=== PATIENT | female | born 2000 | race Hispanic/Latino ===

== ENCOUNTER 2018-11-11 17:08 | Inpatient (IN) | payer OTHER ==
[~2018-11-11 17:08] MED LIST: Bupivacaine/Epinephrine 0.25% 30 ML VIAL ONE
[2018-11-11 17:52] VITALS: BMI 35.2
[2018-11-11] MEDS ORDERED: hydrALAZINE 20 MG/ML VIAL SLOW IVP PRN ×2 (18:23→19:12)
[2018-11-11] MEDS ORDERED: Acetaminophen 500 MG TAB PO PRN (19:12)
[2018-11-11] MEDS ORDERED: Methylergonovine 0.2 MG/ML VIAL IM PRN (19:12)
[2018-11-11] MEDS ORDERED: Butorphanol Tartrate 1 MG/ML VIAL SLOW IVP PRN (19:12)
[2018-11-11] MEDS ORDERED: Misoprostol 200 MCG TAB PR PRN (19:12)
[2018-11-11] MEDS ORDERED: NS / Oxytocin 40 units/1000ml 1,000 ML IV PRN (19:12)
[2018-11-11] MEDS ORDERED: Carboprost 250 MCG/ML AMP IM PRN (19:12)
[2018-11-11] MEDS ORDERED: Ibuprofen 800 MG TAB PO PRN (19:12)
[2018-11-11] MEDS ORDERED: Ondansetron PF 4 MG/2 ML Vial IVP PRN (19:12)
[2018-11-11] MEDS ORDERED: Zolpidem Tartrate 5 MG TAB PO PRN (19:12)
[2018-11-11] MEDS ORDERED: HYDROcodone/Acetaminophen 5/325 mg Tablet PO PRN ×2 (19:12)
[2018-11-11] MEDS ORDERED: Lidocaine 1% (PF) 30 ML VIAL SC PRN (19:12)
[2018-11-11] MEDS ORDERED: Promethazine HCl 25 MG/ML VIAL IM PRN (19:12)
--- NOTE | 2018-11-11 19:20 | PDOC.LDHP ---
Labor and Delivery H&P Chief complaint: contractions HPI: 18 yo LAF presents c/o UCs since 5am today. + bloody show. Denies SROM or heavy bleeding. Current gestational age (weeks): 37 Due date: 11/28/18 Dating criteria: last menstrual period Grav: 1 Para: 0 OB History Details: PNC with Dr. Barba w/o complications. Current complications: none Abnormal US findings: No Past Medical History: None Current medications: pre- vitamins Previous surgical history: none Allergies/Adverse Reactions: Allergies Allergy/AdvReac Type Severity Reaction Status Date / Time No Known Allergies Allergy Unverified 11/11/18 17:58 Social history: none - Physical Exam Vital signs reviewed and normal: yes General: breathing through contractions Heart: RRR Lungs: nonlabored breathing Extremeties: trace edema FHT: category 1 [place] contractions every: q 2-3 mis - Vaginal Exam cm dilated: 4 Effacement: 100% Station: -1 - OB Labs Blood type: O RH: positive Antibody Screen: negative HIV: negative HEPSAg: negative GBS: negative Rubella: immune - Assessment L&D Assessment: term patient in labor - Plan Plan: admit to L&D (Dr. Barba notified), labor augmentation if indicated, informed consent obtained
[2018-11-11] MEDS ORDERED: Lactated Ringer's 1,000 ML IV SCH (19:30)
[2018-11-11] MEDS ORDERED: NS w/ Oxytocin 10 units 500 ML IV SCH (19:30)
[2018-11-11 20:09] LABS: Mean Corpuscular HGB CONC 34.5 g/dL (32.0-36.0); Mean Corpuscular Hemoglobin 31.3 pg (25.0-35.0); Mean Corpuscular Volume 90.6 fL (78.0-98.0); Mean Platelet Volume 7.7 fL (7.4-10.4); Platelet Count 331 thou/uL (130-400); RBC Distribution Width 11.7 % (11.5-14.5); Red Blood Cell (RBC) Count 4.47 mill/uL (4.00-5.20)
[2018-11-11 20:47] LABS: Syphilis Antibody Nonreactive (Nonreactive); Syphilis Antibody Index 0.03 S/CO (<1.00 Non-Reactive)
[2018-11-11] MEDS: Lactated Ringer's 1,000 ML IV SCH (20:57)
[2018-11-11 23:19] LABS: HBSAg Index 0.17 S/CO (0-0.99); Hep B Surf Ag Non-Reactive S/CO (NonReactive)
[2018-11-12] MEDS: Lactated Ringer's 1,000 ML IV SCH ×2 (01:18→05:31)
[2018-11-12] MEDS ORDERED: Fentanyl 4 mcg/Bup 0.1% Cadd 100 ML ONE (02:42)
[2018-11-12] MEDS ORDERED: Lidocaine 1.5%/Epinephrine 1:200,000 5 ML AMPUL IJ ONE (02:54)
[2018-11-12] MEDS ORDERED: Fentanyl 100 MCG/2 ML VIAL ONE (02:54)
[2018-11-12] MEDS ORDERED: Ondansetron PF 4 MG/2 ML Vial IVP PRN (04:25)
[2018-11-12] MEDS ORDERED: ePHEDrine/0.9% NaCl/PF SYRINGE 50 mg/10 ml SLOW IVP PRN (04:25)
[2018-11-12] MEDS ORDERED: diphenhydrAMINE 50 MG/ML VIAL IVP PRN (04:25)
[2018-11-12] MEDS ORDERED: Lactated Ringer's 500 ML IV PRN (04:25)
[2018-11-12] MEDS ORDERED: Naloxone HCl 0.4 mg/ml Vial IVP PRN ×2 (04:25)
[2018-11-12] MEDS ORDERED: Promethazine HCl 25 MG/ML VIAL IM PRN (04:25)
[2018-11-12] MEDS ORDERED: Acetaminophen 325 MG TAB PO PRN (04:25)
[2018-11-12] MEDS ORDERED: Communication Order-Pharmacy FS SCH (04:30)
[2018-11-12] MEDS ORDERED: Fentanyl 4 mcg/Bupivacaine 0.1% Cassette 100 ML EPIDURAL SCH (04:30)
[2018-11-12] MEDS ORDERED: Lidocaine 1% (PF) 30 ML VIAL ONE (06:11)
--- NOTE | 2018-11-12 09:29 | PDOC.OPDEL ---
OB Operative/Delivery Note Delivery Dr/Surgeon: Freda Pre-Delivery Diagnosis: active labor Procedure/Post Delivery Dx: spontaneous vaginal delivery Weeks gestation: 37 Anesthesia: epidural - Findings A - 1 min: 8 - 5 min: 9 - Additional Findings/Plan Placenta delivered: spontaneous Repaired Obstetrical Laceration: 1st degree Estimated blood loss: qbl 150 ml
[2018-11-12] MEDS ORDERED: traMADol HCl 50 MG TAB PO PRN (09:30)
[2018-11-12] MEDS ORDERED: Milk Of Magnesia 30 ML UDCUP PO PRN (09:30)
[2018-11-12] MEDS ORDERED: hydrALAZINE 20 MG/ML VIAL SLOW IVP PRN (09:30)
[2018-11-12] MEDS ORDERED: Lanolin Ointment 7 GM TUBE TOP PRN (09:30)
[2018-11-12] MEDS ORDERED: Benzocaine-Menthol 82.5 ML CAN TOP PRN (09:30)
[2018-11-12] MEDS ORDERED: Bisacodyl 10 MG SUPP PR PRN (09:30)
[2018-11-12] MEDS: NS / Oxytocin 40 units/1000ml 1,000 ML IV SCH ×2 (09:49→15:52)
[2018-11-12] MEDS: Ibuprofen 800 MG TAB PO SCH ×2 (15:51→21:47)
[2018-11-12] MEDS: Ferrous Sulfate 325 MG TAB PO SCH (18:29)
[2018-11-12] MEDS: Docusate Calcium (SURFAK) 240 MG CAP PO SCH (21:47)
[2018-11-13] MEDS: Ibuprofen 800 MG TAB PO SCH ×3 (06:23→21:08)
[2018-11-13] MEDS: Ferrous Sulfate 325 MG TAB PO SCH ×2 (07:39→13:27)
--- NOTE | 2018-11-13 08:12 | PDOC.PP ---
Post Progress Note Post Day #: 1 PO intake tolerated: yes Flatus: yes Ambulation: yes Vital Signs (12 hours) Temp Pulse Resp BP Pulse Ox 11/13/18 04:15 98.1 F 90 18 123/71 11/13/18 00:58 98.0 F 91 18 126/66 11/12/18 20:20 97 Weight Weight 205 lb Result Diagrams: 11/11/18 19:31 Additional Labs: Post Labs Blood Type O POSITIVE 11/11/18 20:51 Hep Bs Antigen Non-Reactive S/CO (NonReactive) 11/11/18 19:31 - Assessment/Plan POst day0-1. PrimiPARA. dOING WELL. rOUTINE CARE. d/C FOR am.
[2018-11-13] MEDS ORDERED: Adacel (T-DAP) 0.5 ML SYRINGE IM ONE (09:30)
[2018-11-13] MEDS: Docusate Calcium (SURFAK) 240 MG CAP PO SCH ×2 (09:31→21:09)
[2018-11-13] MEDS: Prenatal Vitamin 1 TAB PO SCH (09:31)
[2018-11-14] MEDS: Ibuprofen 800 MG TAB PO SCH (06:21)
[2018-11-14] MEDS: Ferrous Sulfate 325 MG TAB PO SCH (08:36)
[2018-11-14 08:40] VITALS: BP 137/84; TEMP 98.1
--- NOTE | 2018-11-14 09:21 | PDOC.PP ---
Post Progress Note Post Day #: 2 PO intake tolerated: yes Flatus: yes Ambulation: yes Vital Signs (12 hours) Temp Pulse Resp BP Pulse Ox 11/14/18 08:40 98.1 F 70 16 137/84 100 11/14/18 08:00 100 11/14/18 00:30 98.4 F 64 18 124/64 Weight Weight 205 lb Result Diagrams: 11/11/18 19:31 Additional Labs: Post Labs Blood Type O POSITIVE 11/11/18 20:51 Hep Bs Antigen Non-Reactive S/CO (NonReactive) 11/11/18 19:31 - Assessment/Plan dOING WELL POST DAY 2. d/C HOME. f/U IN 6 WEEKS..
[2018-11-14] MEDS: Prenatal Vitamin 1 TAB PO SCH (09:41)
[2018-11-14] MEDS: Docusate Calcium (SURFAK) 240 MG CAP PO SCH (09:41)
== END 2018-11-14 12:30 | disposition home or self-care (01) | DRG 807 ==
LOC: L&D/OP 17:08 → L&D 21:47 → 3SW 11-12 12:31
PROVIDERS: ADMIT Obstetrics & Gynecology; ATTEND Obstetrics & Gynecology
PROC: 10E0XZZ Delivery of Products of Conception, External Approach (ICD-10-PCS; principal; 2018-11-12)
PROC: 0HQ9XZZ Repair Perineum Skin, External Approach (ICD-10-PCS; 2018-11-12)
DX: O70.0 First degree perineal laceration during delivery (principal); Z37.0 Single live birth; Z3A.37 37 weeks gestation of pregnancy
CPT/HCPCS: 36415; 85027; 86780; 86850; 86900; 86901; 87340; J0595; J2001; J3010; J3490

== ENCOUNTER 2019-01-05 10:31 | Emergency (ER) | payer OTHER ==
[2019-01-05] MEDS ORDERED: Ondansetron ODT 4 MG TAB ONE (10:39)
[2019-01-05] MEDS ORDERED: Morphine 4 MG/ML VIAL ONE (11:39)
[2019-01-05 12:08] LABS: #Basophils 0.1 thou/uL (0.0-0.2); #Lymphocytes 0.8 thou/uL (1.20-3.40); #Monocytes 0.3 thou/uL (0.11-0.59); #Neutrophils 14.6 thou/uL (1.40-6.50); %Basophils 0.3 % (0.0-1.0); %Eosinophils 0.1 % (0.0-10.0); %Lymphocytes 5.1 % (28.0-48.0); %Neutrophils 92.5 % (31.0-61.0); Hemoglobin 14.2 g/dL (12.0-16.0); Mean Corpuscular HGB CONC 34.6 g/dL (32.0-36.0); Mean Corpuscular Hemoglobin 30.7 pg (25.0-35.0); Mean Corpuscular Volume 88.9 fL (78.0-98.0); Mean Platelet Volume 6.8 fL (7.4-10.4); Platelet Count 400 thou/uL (130-400); RBC Distribution Width 11.4 % (11.5-14.5); Red Blood Cell (RBC) Count 4.61 mill/uL (4.00-5.20); White Blood Cell (WBC) Count 15.8 thou/uL (4.8-10.8)
--- NOTE | 2019-01-05 12:23 | ULT ---
ULTRASOUND GALLBLADDER RIGHT UPPER QUADRANT: CLINICAL HISTORY: Abdominal pain. COMPARISON: None. FINDINGS: Pancreas: The head of the pancreas has a normal echotexture. The remainder the pancreas is obscured b y bowel gas. Liver: Heterogeneous echotexture which may be due to hepatic steatosis or hepatocellular disease. Sub sequent limited evaluation for hepatic masses and intrahepatic biliary dilatation. The contour of the hepatic margin is maintained. Right hepatic lobe measures 18.1 cm. Gallbladder: Mild gallbladder distention. Small echogenic nonshadowing focus in the neck of the gallb ladder which may represent an adherent nonshadowing stone versus a gallbladder polyp. Gallbladder wall is not thickened. No pericholecystic fluid. Askew's sign:Negative. Portal Vein: Patent. Appropriate directional flow. Bile ducts: 0.5 cm. Right kidney: No hydronephrosis. Right kidney measures 5.3 x 4.7 x 9.8 cm in length. IMPRESSION: Small nonshadowing echogenic focus in the lumen of gallbladder which may represent a small gallstone or polyp. No evidence of cholecystitis. Transcribed Date/Time: 01/05/2019 12:31 PM
[2019-01-05 12:24] LABS: ALT (SGPT) 169 U/L (8-55); AST (SGOT) 282 U/L (5-34); Albumin 4.5 g/dL (3.5-5.0); Alkaline Phosphatase 176 U/L (40-100); Anion Gap 15 mmol/L (10-20); BUN (Urea Nitrogen) 5 mg/dL (7.0-18.7); Bilirubin, Total 1.8 mg/dL (0.2-1.2); Calc. Creatinine Clearance 0 mL/min (70-130); Calcium 9.6 mg/dL (7.8-10.44); Carbon Dioxide 23 mmol/L (22-29); Chloride 103 mmol/L (98-107); Estimated GFR-MDRD Greater than 90; Glucose 103 mg/dL (70-105); Lipase 7 U/L (8-78); Potassium 5.5 mmol/L (3.5-5.1); Protein, Total 7.5 g/dL (6.0-8.3); Sodium 135 mmol/L (136-145)
--- NOTE | 2019-01-05 12:25 | RAD ---
SINGLE VIEW CHEST: Date: 01/05/19 COMPARISON: None. HISTORY: Chest pain with vomiting. FINDINGS: Single view of the chest shows a normal sized cardiomediastinal silhouette. There is no evidence of c onsolidation, mass, or pleural effusion. The bones are unremarkable. IMPRESSION: No evidence of acute cardiopulmonary disease. POS: TPC
[2019-01-05] MEDS ORDERED: Ketorolac Tromethamine 30 MG/ML VIAL ONE (13:27)
== END 2019-01-05 14:06 | disposition home or self-care (01) ==
LOC: ERS 10:31
DX: K80.20 Calculus of gallbladder without cholecystitis without obstruction (principal); R11.2 Nausea with vomiting, unspecified
CPT/HCPCS: 36415; 71045; 76705; 80053; 83690; 84484; 85025; 93005; 96361; 96374; 96375; J1885; J2270; Q0162

== ENCOUNTER 2019-01-20 10:05 | Day surgery (SDC) | payer OTHER ==
[2019-01-19 16:50] VITALS: BMI 30.7
--- NOTE | 2019-01-20 07:36 | HP ---
HISTORY OF PRESENT ILLNESS: Serenity Borges is a 18-year-old female, who presented to the emergency room on 01/05/2019 with interscapular pain, epigastric radiation, nausea. She has had other episodes since that time. Her for symptoms occurred during her . She is 1, para 1, just 2 months after her last . Ultrasound revealed gallstones without bile duct dilatation. Liver function tests and CBC were normal. ALLERGIES: NONE. SOCIAL HISTORY: Tobacco, none. Alcohol, none. MEDICATIONS: 1. Tramadol. 2. Zofran. PAST SURGICAL AND MEDICAL HISTORY: Noncontributory. REVIEW OF SYSTEMS: Ten-point noncontributory. PHYSICAL EXAMINATION: VITAL SIGNS: 97.4, 147/86, 91, 18, . HEAD, EARS, EYES, NOSE, AND THROAT: Unremarkable. LUNGS: Clear to auscultation. CARDIAC: Regular rate and rhythm without murmur or gallop. ABDOMEN: Soft and nontender. No masses. Sclerae without icterus. SKIN: Normal color. LABORATORY DATA: Liver function tests, comprehensive metabolic profile, amylase, lipase are normal, 01/15/19. ASSESSMENT AND PLAN: Cholecystitis, cholelithiasis. We recommend laparoscopic video cholecystectomy. Risks of infection, bleeding, reoperation explained. Questions answered. Job ID: [id number]
[2019-01-20] MEDS ORDERED: Rocuronium Bromide 10 MG/ML (10ML VIAL) ONE (10:28)
[2019-01-20] MEDS ORDERED: Ondansetron PF 4 MG/2 ML Vial ONE (10:28)
[2019-01-20] MEDS ORDERED: Lidocaine 1% PF 5 ML VIAL ONE (10:28)
[2019-01-20] MEDS ORDERED: Dexamethasone 20 MG/5 ML VIAL ONE (10:28)
[2019-01-20] MEDS ORDERED: Glycopyrrolate 0.2 MG/ML 5 ML SYRINGE ONE (10:28)
[2019-01-20] MEDS ORDERED: PROPOFOL 200 MG/20 ML VIAL ONE (10:28)
[2019-01-20] MEDS ORDERED: diphenhydrAMINE 50 MG/ML VIAL ONE (10:28)
[2019-01-20] MEDS ORDERED: Ketorolac Tromethamine 30 MG/ML VIAL ONE (10:49)
[2019-01-20] MEDS ORDERED: Levofloxacin 500 mg/D5W 100 ml Premix Bag ONE (10:51)
[2019-01-20] MEDS ORDERED: Bupivacaine 0.25% HCL 30 ML VIAL ONE (11:20)
[2019-01-20] MEDS ORDERED: Lidocaine 1% w/Epinephrine 1:100K 20 ML VIAL ONE (11:20)
[2019-01-20] MEDS ORDERED: Fentanyl 100 MCG/2 ML VIAL ONE (11:22)
[2019-01-20] MEDS ORDERED: Meperidine HCl/PF 25 MG/ML VIAL ONE (12:50)
--- NOTE | 2019-01-20 14:57 | OP ---
DATE OF PROCEDURE: 01/20/2019 PREOPERATIVE DIAGNOSES: Chronic cholecystitis and cholelithiasis. POSTOPERATIVE DIAGNOSES: Chronic cholecystitis and cholelithiasis. PROCEDURE PERFORMED: Laparoscopic video cholecystectomy. ANESTHESIA: General, local 0.5% Marcaine without epinephrine 30 mL mixed with 1% Xylocaine with epinephrine 30 mL, 40 mL mixture used. DESCRIPTION OF PROCEDURE: The patient was taken to the operating room, where under general anesthesia, abdomen was prepared with ChloraPrep and draped in routine fashion. Local anesthetic was infiltrated in the skin and subcutaneous tissue about each port site. Infraumbilical incision was made. Pneumoperitoneum to 15 mmHg was obtained with a Veress needle, replaced it with a 5 port, and video laparoscope was inserted. Right subxiphoid incision was made, and 11 port was placed. Right subcostal incision was made at midclavicular entrance line, and the 5 ports placed. Liver appeared to be normal. Fundus of the gallbladder was grasped at cephalad. Infundibulum was grasped and reflected laterally. Cystic artery and duct dissected free. Critical view obtained. Cystic artery and duct double clipped proximally and divided. Gallbladder was dissected free from liver bed obtaining good hemostasis prior to division of the final peritoneal attachments. Gallbladder and contents were removed, submitted to Pathology. Good hemostasis ensured with the cautery. Irrigant and pneumoperitoneum evacuated. All instruments were removed. All skin incisions were approximated with interrupted subdermal 4-0 Monocryl and [place] glue applied. Job ID: [id number]
== END 2019-01-20 14:30 | disposition home or self-care (01) ==
LOC: SDC 10:05
PROVIDERS: ATTEND Specialist
PROC: 0FT44ZZ Resection of Gallbladder, Percutaneous Endoscopic Approach (ICD-10-PCS; principal; 2019-01-20)
DX: K80.10 Calculus of gallbladder with chronic cholecystitis without obstruction (principal)
CPT/HCPCS: 88304; J0131; J1100; J1200; J1885; J1956; J2001; J2175; J2405; J2704; J3010; S0020